=== PATIENT | male | born 1965 | race Caucasian/White ===

== ENCOUNTER 2018-07-08 12:25 | Emergency (ER) | payer OTHER ==
[~2018-07-08] VITALS: Ht 167.6 cm; Wt 91.9 kg
[~2018-07-08 12:25] MED LIST: ALBU8.5H8 INH; AMOX500C2 PO; BACTDS PO; CEPH-443 PO; IBUP-1542 PO; INHA-3 MC
[2018-07-08 12:30] VITALS: Ht 167.6 cm; Wt 91.9 kg
[2018-07-08] MEDS ORDERED: CLOT30CR24 TOP (13:43)
--- NOTE | 2018-07-08 13:46 | ERD ---
ER Documentation Chief Complaint Chief Complaint penis swelling/pain since yesterday HPI 53-year-old male presents with penile pain and swelling since yesterday. He retracted his foreskin is unable to return it. Denies any fevers, vomiting, dysuria. Has a history of diabetes. Denies any testicular pain or swelling. ROS All systems reviewed and are negative except as per history of present illness. Medications Home Meds Active Scripts Clotrimazole* (Clotrimazole* AF) 1% - 30 Gm Cream.gm., 1 APPLIC TOP BID for 7 Days, TUB Prov:JG GUADARRAMA MD 07/08/18 Ibuprofen* (Motrin*) 600 Mg Tab, 600 MG PO Q8, #15 TAB Prov:YENIFER YOUNG MD 03/12/18 Inhaler, Assist Devices (Compact Space Chamber) 1 Each Spacer, EACH MC Q4 PRN for COUGH, #1 Prov:YENIFER YOUNG MD 03/12/18 Albuterol Sulfate* (Proair HFA*) 8.5 Gm Hfa.aer.ad, 2 PUFF INH Q4H PRN for WHEEZING AND SOB, #1 INHALER Prov:YENIFER YOUNG MD 03/12/18 Amoxicillin* (Amoxicillin*) 500 Mg Cap, 500 MG PO TID for 7 Days, CAP Prov:YENIFER YOUNG MD 03/12/18 Ibuprofen* (Motrin*) 600 Mg Tab, 600 MG PO Q6, #20 TAB Prov:JG GUADARRAMA MD 11/10/15 Cephalexin* (Keflex*) 500 Mg Capsule, 500 MG PO QID for 7 Days, CAP Prov:JG GUADARRAMA MD 11/10/15 Sulfamethoxazole-Trimethoprim* (Bactrim* DS) 800-160 Mg Tab, 1 TAB PO BID for 7 Days, TAB Prov:JG GUADARRAMA MD 11/10/15 Allergies Allergies: Coded Allergies: No Known Allergy (Unverified , 11/10/15) PMhx/Soc Hx Cardiac Disorders: Yes (DM, htn,hyperlipidemia) Hx Psychiatric Problems: No Hx Miscellaneous Medical Probl: No Hx Alcohol Use: Yes Hx Substance Use: No Hx Tobacco Use: No Smoking Status: Never smoker FmHx Family History: diabetes Physical Exam Vitals Vital Signs Date Temp Pulse Resp B/P (MAP) Pulse Ox O2 O2 Flow FiO2 Time Delivery Rate 07/08/18 99.1 98 20 161/87 97 12:30 (111) Physical Exam Const: No acute distress Head: Atraumatic Eyes: Normal Conjunctiva ENT: Normal External Ears, Nose and Mouth. Neck: Full range of motion. No meningismus. Resp: Clear to auscultation bilaterally Cardio: Regular rate and rhythm, no murmurs Abd: Soft, non tender, non distended. Normal bowel sounds. General exam- there is retracted foreskin with some mild swelling of the glands but there is some skin changes of maceration and irritation consistent with balanitis. Testicles are nontender normal size and descended bilaterally. Skin: No petechiae or rashes Back: No midline or flank tenderness Ext: No cyanosis, or edema Neur: Awake and alert Psych: Normal Mood and Affect Results 24 hrs Current Medications Medications Dose Sig/Vickie Start Time Status Last (Trade) Ordered Route PRN Stop Time Admin Dose Reason Admin Fluconazole 150 mg ONCE ONCE 07/08/18 (Diflucan) PO 14:00 07/08/18 14:01 Procedures/MDM Via gentle traction the paraphimosis was successfully reduced. Patient has signs of balanitis as well which may be a contributing cause. He has no signs of cellulitis, testicular torsion, Tammi's gangrene, abdominal pain, additional concerning signs or symptoms. No signs or symptoms to suggest DKA. Was given Diflucan 150 p.o. and was treated with Lotrimin, return precautions and counseling on gentle retraction of foreskin and returning. The patient was stable with no new complaints during the ER course. Clinically, there is no current evidence to suggest meningitis, sepsis, acute abdomen, pneumonia, stroke, acute coronary syndrome, pulmonary embolism, aortic dissection or any other emergent condition appearing to require further evaluation or hospitaliza tion. Patient counseled regarding my diagnostic impression and care plan. Prior to discharge all questions answered. Pt agrees with treatment plan and understands strict return precautions. Pt is instructed to follow up with primary care provider within 24-48 hours. Precautionary instructions provided including instructions to return to the ER if not improving or for any worsening or changing symptoms or concerns. Disclaimer: Inadvertent spelling and grammatical errors are likely due to EHR/dictation software use and do not reflect on the overall quality of patient care. Also, please note that the electronic time recorded on this note does not necessarily reflect the actual time of the patient encounter. Departure Diagnosis: Primary Impression: Paraphimosis Condition: Stable Patient Instructions: Paraphimosis Additional Instructions: Examines normal hoy. Cheque otro vez con [facility] en el proximo rodriguez or regresa para mas o nueva simptomas. JG GUADARRAMA MD July 08, 2018 13:46
[2018-07-08] MEDS ORDERED: FLUCONAZOLE 150 MG TAB PO ONE (14:00)
[2018-07-08 14:21] VITALS: BP 147/73; PULSE 97; RESP 18
== END 2018-07-08 14:20 | disposition home or self-care (01) ==
LOC: FTE 12:25
DX: N47.2 Paraphimosis (principal)
CPT/HCPCS: 54450; Z7502; Z7610

== ENCOUNTER → 2018-07-30 | Emergency (ER) | payer OTHER ==
[~2018-07-30] VITALS: Wt 90.0 kg
[~2018-07-30] MED LIST changes: +CLOT30CR24 TOP; +DOCU-144 PO; +HYDR-4011 PO; +IBUP800T48 PO
[2018-07-30 11:33] VITALS: BP 117/68; PULSE 114; RESP 18; Wt 90.0 kg
--- NOTE | 2018-07-30 13:38 | ERD ---
ER Documentation Chief Complaint Chief Complaint LEFT ARM PAIN DUE TO WORK INJURY 2 DAYS AGO HPI This is a very pleasant 53-year-old male that presents to the emergency department left shoulder pain. The patient indicates that occurred 48 hours prior to arrival. Patient indicated he was lifting a heavy object when he felt a sudden onset of pain in his left shoulder. He is right-handed dominant. He states the pain is 8 out of 10 intensity. Is exacerbated when he undergoes horizontal movement. He has no chest pressure that radiates to the neck arm back or jaw. He did not take any analgesic medication prior to arrival. He has no shortness of breath at rest or exertion. He is never had any injuries to his left arm or shoulder in the past. He denies a headache or neck pain. ROS All systems reviewed and are negative except as per history of present illness. Medications Home Meds Active Scripts Clotrimazole* (Clotrimazole* AF) 1% - 30 Gm Cream.gm., 1 APPLIC TOP BID for 7 Days, TUB Prov:JG GUADARRAMA MD 07/08/18 Ibuprofen* (Motrin*) 600 Mg Tab, 600 MG PO Q8, #15 TAB Prov:YENIFER YOUNG MD 03/12/18 Inhaler, Assist Devices (Compact Space Chamber) 1 Each Spacer, EACH MC Q4 PRN for COUGH, #1 Prov:YENIFER YOUNG MD 03/12/18 Albuterol Sulfate* (Proair HFA*) 8.5 Gm Hfa.aer.ad, 2 PUFF INH Q4H PRN for WHEEZING AND SOB, #1 INHALER Prov:YENIFER YOUNG MD 03/12/18 Amoxicillin* (Amoxicillin*) 500 Mg Cap, 500 MG PO TID for 7 Days, CAP Prov:YENIFER YOUNG MD 03/12/18 Ibuprofen* (Motrin*) 600 Mg Tab, 600 MG PO Q6, #20 TAB Prov:JG GUADARRAMA MD 11/10/15 Cephalexin* (Keflex*) 500 Mg Capsule, 500 MG PO QID for 7 Days, CAP Prov:JG GUADARRAMA MD 11/10/15 Sulfamethoxazole-Trimethoprim* (Bactrim* DS) 800-160 Mg Tab, 1 TAB PO BID for 7 Days, TAB Prov:JG GUADARRAMA MD 11/10/15 Allergies Allergies: Coded Allergies: No Known Allergy (Unverified , 11/10/15) PMhx/Soc Hx Cardiac Disorders: Yes (htn) Hx Psychiatric Problems: No Hx Miscellaneous Medical Probl: No (DM, ,hyperlipidemia) Hx Alcohol Use: Yes Hx Substance Use: No Hx Tobacco Use: No Physical Exam Vitals Vital Signs Date Temp Pulse Resp B/P (MAP) Pulse Ox O2 O2 Flow FiO2 Time Delivery Rate 07/30/18 99.2 114 18 117/68 99 11:33 (84) Physical Exam Constitutional:Well-developed. Well-nourished. Respiratory: Not using accessory muscles of respiration.Lungs were clear to auscultation bilaterally. No rhonchi. No rales. No wheezing. Cardiovascular: Regular rate regular rhythm.No murmurs. No rubs were appreciated.S1, S2 normal. Distal pulses are palpable 2+ bilaterally. Muscle skeletal: Full range of motion of both the upper and lower extremities bilaterally.Normal muscle tone.No assymetrical calf tenderness or swelling. Tenderness at the distal left AC joint. Patient was able to abduct the left upper extremity to roughly 45 degrees and then this exacerbated pain. There was a normal lie to the left humeral head. No wrist drop on the left. No obvious defect to the patient's biceps tendon. NEURO: Patient able ambulate without any difficulty. Sensation intact over the radial ulnar median and axillary nerve dissipation of the left upper extremity. Handgrip is equal and symmetrical bilaterally. Procedures/MDM This is a 53-year-old male presented to the emergency department with pain over the left shoulder. There is no obvious bony deformity to suggest a dislocation. I did obtain a three-view radiograph of the left shoulder reviewed by myself the radiologist that indicated no fracture dislocation but did confirm a possible calcific tendinosis of the distal supraspinatus tendon. This was consistent with patient's physical exam findings. He will be sent home with anti-inflammatories and [place] to take if needed for analgesia control. I stated he would benefit from following up with an outpatient orthopedic surgeon. The patient was discharged home in fair condition. They were instructed to return to the emergency department at any time if there was any worsening of their condition. The patient stated they would follow up with their PCP in the next 24-48 hours to initiate a suitable medication regimen under the care of their PCP as well as to allow their PCP to monitor any drug reactions. The patient was discharged home with prescriptions after they gave informed consent to the new medication. They were also fully informed by myself on the adverse effects and adverse drug interactions in order to provide adequate safeguards to prevent possible adverse reactions to medications. Departure Diagnosis: Primary Impression: Calcific tendinitis of left shoulder Condition: BHASKAR Mallory MD Jul 30, 2018 13:38
== END | disposition home or self-care (01) ==
LOC: FTE 11:30
DX: M75.32 Calcific tendinitis of left shoulder (principal); E11.9 Type 2 diabetes mellitus without complications; I10 Essential (primary) hypertension
CPT/HCPCS: 73030; Z7502

== ENCOUNTER 2018-08-14 22:59 | Emergency (ER) | payer OTHER ==
[~2018-08-14] VITALS: Ht 165.1 cm; Wt 90.1 kg
[2018-08-14 23:08] VITALS: Ht 165.1 cm; Wt 90.1 kg
[2018-08-15] MEDS ORDERED: FLUORESCEIN STRIP BOTH EYES ONE
[2018-08-15] MEDS ORDERED: TETRACAINE 0.5% 4 ML OPH BOTH EYES ONE
[2018-08-15] MEDS ORDERED: KETO5DRO71 OP (00:33)
[2018-08-15] MEDS ORDERED: OFLO5DRO46 BOTH EYES (00:33)
--- NOTE | 2018-08-15 00:41 | ERD ---
ER Documentation Chief Complaint Chief Complaint PT IS A [place] AND WORKING W [employer], C/O WATERY EYES AND NOSE HPI 53-year-old male presenting with irritation to bilateral eyes. Patient states he was cutting plants earlier today and rubbed his eyes. Ever since and has been having irritation. He does not use any medications on the eyes. Denies any visual changes. Medical history is diabetes, hypercholesterolemia, hypertension. NKDA. Surgical history denies. Up-to-date on vaccinations. Social history denies ROS All systems reviewed and are negative except as per history of present illness. Medications Home Meds Active Scripts Ketotifen Fumarate (ZADITOR) 5 Ml Drops, 5 ML OP DAILY, #1 BOTTLE Prov:JERE CARRERO PA-C 08/15/18 Ofloxacin* (Ocuflox*) 0.3%-5 Ml Ophth Drops, 1 DROP BOTH EYES QID, #1 BOTTLE Prov:JERE CARRERO PA-C 08/15/18 Docusate Sodium* (Colace*) 100 Mg Capsule, 100 MG PO Q24H PRN for CONSTIPATION, #30 CAP Prov:BHASKAR MOONEY MD 07/30/18 Hydrocodone/Acetaminophen ([place] 5-325 Tablet) 1 Each Tablet, 1 TAB PO Q6H PRN for PAIN, #20 TAB Prov:BHASKAR MOONEY MD 07/30/18 Ibuprofen* (Motrin*) 800 Mg Tab, 800 MG PO Q6H PRN for PAIN AND OR ELEVATED TEMP, #30 TAB Prov:BHASKAR MOONEY MD 07/30/18 Clotrimazole* (Clotrimazole* AF) 1% - 30 Gm Cream.gm., 1 APPLIC TOP BID for 7 Days, TUB Prov:JG GUADARRAMA MD 07/08/18 Ibuprofen* (Motrin*) 600 Mg Tab, 600 MG PO Q8, #15 TAB Prov:YENIFER YOUNG MD 03/12/18 Inhaler, Assist Devices (Compact Space Chamber) 1 Each Spacer, EACH MC Q4 PRN for COUGH, #1 Prov:YENIFER YOUNG MD 03/12/18 Albuterol Sulfate* (Proair HFA*) 8.5 Gm Hfa.aer.ad, 2 PUFF INH Q4H PRN for WHEEZING AND SOB, #1 INHALER Prov:YENIFER YOUNG MD 03/12/18 Amoxicillin* (Amoxicillin*) 500 Mg Cap, 500 MG PO TID for 7 Days, CAP Prov:YENIFER YOUNG MD 03/12/18 Ibuprofen* (Motrin*) 600 Mg Tab, 600 MG PO Q6, #20 TAB Prov:JG GUADARRAMA MD 11/10/15 Cephalexin* (Keflex*) 500 Mg Capsule, 500 MG PO QID for 7 Days, CAP Prov:JG GUADARRAMA MD 11/10/15 Sulfamethoxazole-Trimethoprim* (Bactrim* DS) 800-160 Mg Tab, 1 TAB PO BID for 7 Days, TAB Prov:JG GUADARRAMA MD 11/10/15 Allergies Allergies: Coded Allergies: No Known Allergy (Unverified , 11/10/15) PMhx/Soc Hx Cardiac Disorders: Yes (htn) Hx Psychiatric Problems: No Hx Miscellaneous Medical Probl: No (DM, ,hyperlipidemia) Hx Alcohol Use: Yes Hx Substance Use: No Hx Tobacco Use: No FmHx Family History: No diabetes, No coronary disease, No other Physical Exam Vitals Vital Signs Date Temp Pulse Resp B/P (MAP) Pulse Ox O2 O2 Flow FiO2 Time Delivery Rate 08/14/18 98.0 91 16 156/80 97 23:08 (105) Physical Exam GENERAL: The patient is well-appearing, well-nourished, in no acute distress HEENT: Atraumatic. Conjunctivae are pink. Pupils equal, round, and reactive to light. Erythema and mild injection noted to bilateral eyes. Tympanic membranes clear bilaterally. Oropharynx clear. CHEST: Clear to auscultation bilaterally. There are no rales, wheezes or rhonchi. HEART: Regular rate and rhythm. No murmurs, clicks, rubs or gallops. Results 24 hrs Current Medications Medications Dose Sig/Vickie Start Time Status Last (Trade) Ordered Route PRN Stop Time Admin Dose Reason Admin Fluorescein 1 strip ONCE ONCE 08/15/18 DC Sodium BOTH EYES 00:00 ([id number] 08/15/18 00:01 p) Tetracaine 1 drop ONCE ONCE 6/23/19 DC HCl BOTH EYES 00:00 (Tetracaine 08/15/18 00:01 0.5% Steri-Unit Vanessa) Procedures/MDM ER Course: Tetracaine and fluorescein stain applied in ED. No foreign body or corneal abrasion noted. MDM: 53-year-old male presenting with irritation to her eyes. I have low suspicion for foreign body. I have low suspicion for corneal abrasion. Patient will be discharged with supportive medications. Patient is told symptoms change or worsen to return immediately to the ER. All questions answered at discharge Departure Diagnosis: Primary Impression: Eye problem Condition: Stable Patient Instructions: Conjunctivitis Caused by Irritation Referrals: [facility] Hours: Mon - Thu 9:00 AM - 5:00 PM Additional Instructions: FOLLOW UP WITH YOUR PRIMARY CARE PHYSICIAN TOMORROW.Return to this facility if you are not improving as expected. JERE CARRERO PA-C Aug 15, 2018 00:41
[2018-08-15 01:25] VITALS: BP 130/76; PULSE 86; RESP 16
== END 2018-08-15 01:25 | disposition home or self-care (01) ==
LOC: FTE 22:59
DX: H57.89 Other specified disorders of eye and adnexa (principal); I10 Essential (primary) hypertension; E11.9 Type 2 diabetes mellitus without complications
CPT/HCPCS: Z7610 ×2; 99283